=== PATIENT | male | born 1955 | race Caucasian/White ===

== ENCOUNTER 2023-03-07 09:49 | Outpatient (CLI) | payer MEDICARE, SELFPAY ==
--- NOTE | ~2023-03-07 | XR_ITS ---
Right Shoulder Technique: AP and axillary views were obtained. Clinical History: Pain Findings: No fracture or dislocation is seen. Osseous alignment is anatomic. Minimal degenerative april nge of the glenohumeral joint noted. Soft tissues are unremarkable. Impression: Minimal glenohumeral joint degenerative change. Reviewed, dictated and finalized at [facility]. Impression: Minimal glenohumeral joint degenerative change.
--- NOTE | ~2023-03-07 | XR_ITS ---
Left wrist Technique: PA, oblique, lateral, and ulnar deviation views were obtained. Clinical History: Pain Findings: No acute fracture or dislocation is seen. Chronic fracture fragment or persistent secondary ossification center noted at the ulnar styloid process. There is marked narrowing/degenerative delarosa e of the radial scaphoid articulation. Suggestion of dorsal tilt of the lunate on lateral view delmer g the possibility of DISI. Soft tissues are unremarkable. Impression: Degenerative change of the radial scaphoid articulation. Chronic fracture fragment or persistent secondary ossification center at the ulnar styloid process. Possible DISI, though no distinct widening of the scapholunate articulation is seen. Reviewed, dictated and finalized at location M. Impression: Degenerative change of the radial scaphoid articulation. Chronic fracture fragment or persistent secondary ossification center at the ul claire styloid process. Possible DISI, though no distinct widening of the scapholunate articulation is seen.
== END 2023-03-07 09:50 ==
PROVIDERS: PCP Family Medicine; Visit Provider Nurse Practitioner Family
DX: S49.91XA Unspecified injury of right shoulder and upper arm, initial encounter (principal); M25.532 Pain in left wrist; X58.XXXA Exposure to other specified factors, initial encounter
CPT/HCPCS: 73030; 73110

== ENCOUNTER 2023-06-13 12:56 | Emergency (ER) | payer MEDICARE, SELFPAY ==
--- NOTE | ~2023-06-13 | XR_ITS ---
XR chest 2V DATE: 06/13/2023 14:10 INDICATION: Dizziness, hypertension, tachycardia. Heart surgery 2 weeks ago TECHNIQUE: PA and lateral views COMPARISON: 11/01/2019 CT pulmonary scan 11/10/2019 PA and lateral chest. FINDINGS: Status post mitral valve replacement. Heart size is within normal limits. There is thoracic aortic tortuosity. There is an ill-defined approximately 3 x 4 cm opacity overlying the lower right perihilar area later ally, which may represent some focal infiltrate or atelectasis or pulmonary contusion. Short-term fol low-up radiographs are recommended given that the patient has had recent surgery. There is suggestion of minimal infiltrate or atelectasis in the lateral right mid to upper lung as we ll. The lungs otherwise appear hyperinflated but clear of infiltrate or consolidation. There is osteopenia. There is degenerative spurring of the thoracic spine. IMPRESSION: Approximately 3 x 4 cm ill-defined opacity overlying lateral right lower perihilar area, possibly postoperative contusion or focal pulmonary infiltrate or atelectasis. Recommend short-term f ollow up chest radiographic examination in approximately 2 weeks Status post mitral valve replacement. Reviewed, dictated and finalized at location A. IMPRESSION: Approximately 3 x 4 cm ill-defined opacity overlying lateral right lower perihilar area, possibly postoperative contusion or focal pulmonary infil trate or atelectasis. Recommend short-term follow up chest radiographic examina tion in approximately 2 weeks Status post mitral valve replacement.
--- NOTE | 2023-06-13 13:07 | ECG_ITS ---
Measurements Intervals [place] Rate: 100 P: 6 CT: 156 QRS: 4 QRSD: 85 T: 72 QT: 337 QTc: 436 Interpretive Statements SINUS TACHYCARDIA POSSIBLE LEFT ATRIAL ENLARGEMENT [-0.1mV P WAVE IN V1/V2] POOR R-WAVE PROGRESSION SINUS TACHYCARDIA NOW PRESENT POOR R-WAVE PROGRESSION IS NEW, POSSIBLY DUE TO LEAD PLACEMENT Electronically Signed On 06-13-2023 14:12:39 CDT by Irma Powell M.D.
[2023-06-13 13:13] VITALS: BP 147/99; PULSE 100; RESP 16; TEMP 36.7; O2SAT 100
[2023-06-13 14:55] VITALS: BP 162/122; PULSE 90; RESP 16; TEMP 36.8; O2SAT 96
--- NOTE | 2023-06-13 15:09 | PC.NURSE ---
Manual B/P correlates with monitor.
[2023-06-13 15:24] LABS: Basophils Absolute Auto 0.1 K/mm3 (0.0-0.1); Basophils Percent Auto 0.7 % (0.2-1.2); Eosinophils Absolute Auto 0.1 K/mm3 (0-0.3); Eosinophils Percent Auto 0.5 % (0-4.4); Hematocrit 42.9 % (42.0-52.0); Hemoglobin 13.9 g/dL (14.0-18.0); Immature Granulocyte Absolute 0.08 K/mm3 (0.00-0.031); Immature Granulocyte Percent A 0.7 % (0-0.5); Lymphocytes Absolute Auto 1.04 K/mm3 (0.9-3.2); Lymphocytes Percent Auto 9.3 % (18.3-44.2); Mean Corpuscular HGB Conc 32.4 g/dl (32-36); Mean Corpuscular Hemoglobin 32.1 pg (26-34); Mean Corpuscular Volume 99.1 fl (80-100); Mean Platelet Volume 8.9 fl (7.4-10.4); Monocytes Absolute Auto 0.8 K/mm3 (0.1-0.6); Monocytes Percent Auto 7.3 % (2.6-8.5); Neutrophils Absolute Auto 9.1 K/mm3 (1.3-6.7); Neutrophils Percent Auto 81.5 % (45.5-73.1); Platelet Count Result 464 k/mm3 (150-375); Red Blood Count 4.33 M/mm3 (4.6-6.20); Red Cell Distribution Width 12.3 % (11.5-14.5); White Blood Count 11.2 K/mm3 (4.5-10.0)
[2023-06-13 15:26] VITALS: BP 148/108; PULSE 88; RESP 16; O2SAT 98
[2023-06-13 15:37] LABS: Alanine Aminotransferase 29 U/L (6-50); Albumin Level 4.2 g/dL (3.5-5.1); Alkaline Phosphatase 91 U/L (38-126); Anion Gap 6 mmol/L (8-16); Aspartate Amino Transferase 22 U/L (17-59); Bilirubin,Total 0.4 mg/dL (0.2-1.3); Blood Urea Nitrogen 13 mg/dL (9-20); Calcium 9.6 mg/dL (8.4-10.2); Carbon Dioxide 30 mmol/L (22-30); Chloride 101 mmol/L (98-107); Estimated Glomerular Filt Rate > 60; Glucose 114 mg/dL (65-110); Potassium 4.7 mmol/L (3.4-5.0); Sodium 137 mmol/L (137-145)
[2023-06-13 15:54] VITALS: BP 140/101; PULSE 82; RESP 18; TEMP 36.8; O2SAT 99
--- NOTE | 2023-06-13 16:22 | ED.GENADULT ---
HPI - General Adult General Chief complaint: Recheck/Abnormal Lab/Rx Stated complaint: BP recheck Time Seen by Provider: 06/13/23 14:53 History of Present Illness HPI narrative: Patient is a 67-year-old male who presents ER with elevated blood pressures. Noted today that his systolic blood pressure has been in the 140s and his diastolic blood pressures been in the 100s. He has been compliant with his home antihypertensive medications. He contacted his cardiothoracic surgeon and spa director/finance before arriving here. Patient underwent mitral valve replacement 2 weeks ago. Prior to that he had had a coronary catheterization that showed no coronary disease. No history of cardiac stents. He is having no chest pain or chest pressure. He reports earlier he was talking to a friend at his home when he felt briefly lightheaded and off. Patient feels normal at this time. He has had no runny nose or sore throat or productive cough. No exertional dyspnea Related Data Home Medications Medication Instructions Recorded Confirmed aspirin 81 mg tablet,delayed 81 mg PO DAILY 06/12/23 06/12/23 release (Adult Low Dose Aspirin) metoprolol succinate 25 mg 12.5 mg PO DAILY 06/12/23 06/12/23 tablet,extended release 24 hr Allergies Allergy/AdvReac Type Severity Reaction Status Date / Time venom-wasp Allergy Severe swelling, Verified 06/13/23 14:57 hives oyster extract Allergy Hives Verified 06/13/23 14:57 Review of Systems Review of Systems: All systems reviewed & are unremarkable except as noted in HPI and below Constitutional: Constitutional: Denies chills, Denies fatigue and Denies fever(s) ENT: Reports dizziness, Denies nasal congestion and Denies sore throat Cardiovascular: Cardiovascular: Denies chest pain, Denies rapid heart rate and Denies radiating jaw, neck or arm pain Respiratory: Respiratory: Denies cough and Denies dyspnea Gastrointestinal: Gastrointestinal: Denies abdominal pain, Denies nausea and Denies vomiting Neurologic: Reports dizziness, Denies syncope, Denies headache(s), Denies focal weakness and Denies numbness PMFSH Past Medical History Medical History BMI 23.0-23.9, adult Body mass index [BMI] 22.0-22.9, adult Carpal tunnel syndrome Dermatophytosis of nail Dietary counseling and surveillance (04/09/19) Fear of flying Ganglion, unspecified Mitral valve disease Mitral valve prolapse Osteoarthrosis, unspecified whether generalized or localized, forearm Pure hypercholesterolemia Shellfish allergy Wrist fracture Surgical History Surgical History H/O cardiac catheterization H/O mitral valve repair History of surgery on arm left -1964 History of surgery on wrist left 1976 S/P left knee arthroscopy Family History Family History Father Acute myocardial infarction , age 52 Family history of coronary artery disease Mother H/O mitral valve replacement Sibling H/O tricuspid valve replacement Other Family history of hypercholesterolemia Hypertension Social History Social History Smoking status: Never smoker Second hand tobacco smoke exposure: Yes Alcohol intake: current Drinks per week: 4 Substance use: never Substance use type: does not use Lack of Transportation: No Lack of Food: Never True Current Housing: I Have Housing Concerned About Future Housing: No Difficulty Paying Gas/Electric Bills: No Difficulty Paying for Meds: No Currently Unemployed: No Education: Bachelor's Degree Difficulty w/ Childcare or Family Care: No Living arrangements: with family Occupation/Education: occupation 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
[2023-06-13 17:12] VITALS: BP 135/100; PULSE 83; RESP 18; TEMP 37; O2SAT 99
== END 2023-06-13 17:14 | disposition home or self-care (01) ==
PROVIDERS: Emergency Provider Emergency Medicine; PCP Family Medicine
DX: J18.9 Pneumonia, unspecified organism (principal); I10 Essential (primary) hypertension; I34.1 Nonrheumatic mitral (valve) prolapse; E78.00 Pure hypercholesterolemia, unspecified; M19.90 Unspecified osteoarthritis, unspecified site; Z91.013 Allergy to seafood; Z95.2 Presence of prosthetic heart valve; Z77.22 Contact with and (suspected) exposure to environmental tobacco smoke (acute) (chronic); Z79.82 Long term (current) use of aspirin
CPT/HCPCS: 36415; 71046; 80053; 85025; 93005; 99283

== ENCOUNTER 2023-08-02 10:40 | Outpatient (CLI) | payer MEDICARE, SELFPAY ==
--- NOTE | ~2023-08-02 | CT_ITS ---
CT Scan of the Chest without Contrast: Clinical Indication: Abnormal finding of lung field Technique: Contiguous sections were acquired throughout the chest without intravenous contrast. Dose reduction technique was used on this scan by utilizing automated exposure control and iterative recon struction technique. The dose-length product (DLP) was 235.43 mGy-cm. COMPARISON: 11/01/2019 Findings: There is no evidence of any significant mediastinal, hilar or axillary lymphadenopathy. Coronary skylar ry calcifications are present. Ascending aorta is dilated to 4.3 cm. There is no evidence of pleural or pericardial effusion. Stable 4 mm left lower lobe pulmonary nodule noted (axial image 77). There is chronic appearing scarr ing or atelectasis at the anteromedial right middle lobe. Images through the upper abdomen reveal no abnormalities. Impression: Ascending aorta is dilated to 4.3 cm. Chronic appearing scarring or atelectasis in the anteromedial right middle lobe. Stable subcentimeter left lower lobe pulmonary nodule. Reviewed, dictated and finalized at [facility]. Impression: Ascending aorta is dilated to 4.3 cm. Chronic appearing scarring or atelectasis in the anteromedial right middle lobe . Stable subcentimeter left lower lobe pulmonary nodule.
== END 2023-08-02 10:41 | disposition home or self-care (01) ==
PROVIDERS: PCP Family Medicine; Visit Provider Physician Assistant Medical
DX: R91.8 Other nonspecific abnormal finding of lung field (principal); I77.819 Aortic ectasia, unspecified site; R91.1 Solitary pulmonary nodule
CPT/HCPCS: 71250

== ENCOUNTER 2024-12-16 12:51 | Outpatient (CLI) | payer MEDICARE, SELFPAY ==
--- NOTE | ~2024-12-16 | CT_ITS ---
EXAMINATION:CT diagnostic chest wo con DATE: 12/16/2024 13:08 INDICATION: Other nonspecific abnormal finding of lung field. TECHNIQUE: Computed tomography (CT) of the chest was performed without intravenous contrast. Automate d exposure control and iterative reconstruction technique were employed. The dose-length product (DLP ) was 218.28 mGy-cm. COMPARISON: Chest CT 08/02/2023, 11/01/19 FINDINGS: There is mild scarring in right upper lobe and at left lung apex. There is mild scarring in paraspinal right lower lobe. There is mild bronchiectasis in anterior segment right upper lobe. Ther e is mild atelectasis bilaterally. There is a 5 mm nodule in left lower lobe, stable from 11/01/19. No pleural effusion. The heart size is normal. There are coronary artery calcifications. No pericardial effusion. There is ectasia of ascending aorta measuring 4.6 cm. There is severe thoracic and lumbar spondylosis. IMPRESSION: 1. Mild scarring in the lungs. Reviewed, dictated and finalized at location A. OLOGY PROFESSOR
--- OUTSIDE RECORDS SUMMARY | 2024-12-16 14:33 | XMS_ITS | Referral Summary ---
Author Organization [facility] [place] [address] Address [address] [place] [address] Care Team Providers Care Gas Collection System Operator Name Role Phone Larry Garcia MD Primary Care Provider + [phone] Allergies Active Allergy Reactions Criticality Noted Date Comments Oyster Extract Hypotension High 06/18/2019 Nausea/vomiting Venom-Wasp Anaphylaxis,Swelling High 03/16/2023 Medications EPINEPHrine 0.3 mg/0.3 mL auto-injection syringe as needed 06/12/2023 Active losartan (COZAAR) 50 mg tablet TAKE 1 TABLET BY MOUTH EVERY DAY 90 tablet 3 07/30/2024 Active aspirin 81 mg chewable tablet Take 1 tablet (81 mg total) by mouth daily 08/12/2024 Active Active Problems Problem Noted Date Diagnosed Date HTN (hypertension) 05/27/2023 Assessment & Plan (05/28/2023 12:45 PM CDT): Monitor POC and adjust medications as needed Started BB and titrate as tolerated Assessment & Plan (05/27/2023 2:53 PM CDT): Monitor POC and adjust medications as needed Started BB and titrate as tolerated GERD (gastroesophageal reflux disease) Assessment & Plan (05/28/2023 12:45 PM CDT): Add PPI therapy daily Assessment & Plan (05/27/2023 2:54 PM CDT): Add PPI therapy daily Cardiogenic shock 05/25/2023 Mitral valve regurgitation 06/03/2019 Assessment & Plan (05/28/2023 12:45 PM CDT): S/P BioMVR Aggressive pulmonary toilet PT/OT Continue aspirin, start BB and titrate as tolerated Add lasix DC CTs and wires today Assessment & Plan (05/27/2023 2:52 PM CDT): S/P BioMVR Aggressive pulmonary toilet PT/OT Continue aspirin, start BB and titrate as tolerated Add lasix Keep CTs Keep wires History of mitral valve repair Social History Tobacco Use Types Packs/Day Years Used Date Smoking Tobacco: Never Smokeless Tobacco: Never Tobacco Cessation:Counseling Given: Not Answered Alcohol Use Standard Drinks/Week Comments Yes 0 (1 standard drink = 0.6 oz pur e alcohol) rare/social OASIS D0700: Social Isolation Answer Da te Recorded Frequency of experiencing loneliness or isolatio n Never 06/27/2023 OASIS A1250: Transportation Answer Date Recorded Lack of Transportation (Medical) No 06/27/2023 Lack of Transportation (Non-Medical) No 06/27/2023 Patient Unable or Declines to Respond No 06/27/2023 OASIS B1300: Health Literacy Answer Cash e Recorded Frequency of needing help to read materials from doctor or pharmacy Never 06/27/2023 AUDIT-C Answer Date Recorded Q1: How often do you have a drink containing alcohol? 4 or more times a week 05/09/2023 Q2: How many drinks containi ng alcohol do you have on a typical day when you are drinking? 1 or 2 3 Q3: How often do you have si x or more drinks on one occasion? Never 05/09/2023 Personal Safety Answer Date Recorded Have you ever been in or are you currently in a harmful physical or emotional relationship or is someone making you feel afraid or unsafe? Denies 05/25/2023 Sex and Gender Information Value Date Recorded Sex Assigned at Not on file Legal Sex Male 9:39 AM CDT Gender Identity Not on file Sexual Orientation Not on file Last Filed Vital Signs Vital Sign Reading Time Taken Comments Blood Pressure 120/80 08/12/2024 12:45 PM CDT Pulse 73 08/12/2024 12:45 PM CDT Temperature 36.7 C (98 F) 06/27/2023 9:50 AM CDT Respiratory Rate 18 06/27/2023 9:50 AM CDT Oxygen Saturation 99% 08/12/2024 12:45 PM CDT Inhaled Oxygen Concentration - - Weight 80 kg (176 lb 6.4 oz) 08/12/2024 12:45 PM CDT Height 180.3 cm (5' 11 ) 08/12/2024 12:45 PM CDT Body Mass Index 24.6 08/12/2024 12:45 PM CDT Plan of Treatment Not on file Medical Devices Implanted Type Area Roughener Device Identifier Shelf Expiration Date Model / Serial / Lot [employer] Valve Mitral Tissue Stented Epic Plus 31mm [id number] - [id number] - [id number] Implanted:Qt y: 1 on 05/25/2023 by Michelle Summers MD at [facility] Prosthetic Valve N/A: Heart [employer] [id number] 09/24/2026 [id number] / [id number] / Description:MITRAL VALVE Insurance [facility] CHOICE PLUS MEDICARE SOLUTIONS MEDICARE SOLUTIONS MEDICARE SOLUTIONS Advance Directives For more information, please contact: [phone] * Full Code (Latest Code Status on File) Date Activated Date Inactivated Comments 05/25/2023 1:44 PM 05/29/2023 5:15 PM Care Teams Gas Collection System Operator Relationship Specialty Start Date End Date Larry aGrcia MD PCP - General Family Medicine 04/16/19
--- OUTSIDE RECORDS SUMMARY | 2024-12-16 14:33 | XMS_ITS | Clinical Summary ---
Author Organization [facility] [place] [address] Address [address] [place] [address] Care Team Providers Care Dryland Farmer Name Role Phone Larry Garcia MD Primary Care Provider + [phone] Allergies Active Allergy Reactions Criticality Noted Date [...] Keep wires History of mitral valve repair Surgical History Surgery Date Site/Laterality Comments MITRAL VALVE REPAIR WRIST SURGERY KNEE SURGERY Medical History Medical History Date Comments History of knee surgery H/O wrist surgery History of mitral valve repair Family History Medical History Relation Name Comments Heart attack Father Sudden Cardiac Father Anesthesia problems Neg Hx Relation Name Status Comments Father Social History Tobacco Use Types Packs/Day Years [...] when you are drinking? 1 or 2 Q3: How often do you have si [...] on file Sexual Orientation Not on file Obstetrics History Last Filed Vital Signs Vital Sign Reading [...] 08/12/2024 12:45 PM CDT Plan of Treatment Health Maintenance Due Date Last Done Comments Colon Cancer Screening-Colonoscopy 1957 Depression Screening 1957 Hepatitis C Screening 1957 Prostate Cancer Screening-PSA 1957 DTaP/Tdap/Td Vaccine (1 - Tdap) 1968 Hepatitis B Screening 1975 Zoster Vaccine (1 of 2) 2007 Pneumococcal vaccine 65+ (1 of 1 - PCV) 2022 Well Visit 65+ 2022 Fall Risk Assessment 05/29/2024 05/29/2023 Influenza Vaccine (#1) 2024 06/23/2022, 2018 Medical Devices Implanted Type Area Medical Technologist Generalist Device Identifier Shelf Expiration Date Model / Serial / Lot [employer] Valve Mitral Tissue Stented Epic Plus 31mm [id number] - [id number] - [id number] Implanted:Qt y: 1 on 05/25/2023 by Michelle Summers MD at [facility] Prosthetic Valve N/A: Heart [employer] [id number] 09/24/2026 [id number] / [id number] / Description:MITRAL VALVE Insurance [facility] HMO/PPO Address: [address] [address] [place] [address] [facility] CHOICE PLUS [facility] HMO/PPO Address: [address] [address] [place] [address] MEDICARE SOLUTIONS [facility] MEDICARE Address: [address] [address] [facility] MEDICARE Address: [id number] [place] [address] Advance Directives For more information, please contact: [phone] * Full Code (Latest Code Status on File) Date Activated Date Inactivated Comments 05/25/2023 1:44 PM 05/29/2023 5:15 PM Care Teams Dryland Farmer Relationship Specialty Start Date End Date Larry Garcia MD PCP - General Family Medicine 04/16/19
--- OUTSIDE RECORDS SUMMARY | 2024-12-16 14:33 | XMS_ITS | Encounter Summary ---
Author Organization [facility] Address [address] [place] [address] Phone Care Team Providers Care Oil Mixer Name Role Phone Larry Garcia MD Primary Care Provider [phone] Encounter Details Date Type Department Care Team (Latest Contact Info) Description 08/02/2023 Orders Only [facility] Scanning, Provider Social History Tobacco Use Types Packs/Day Years Used Date Smoking Tobacco: Never Smokeless Tobacco: Never Alcohol Use Standard Drinks/Week Comments Yes 0 [...] on file Sexual Orientation Not on file documented as of this encounter Plan of Treatment Not on file documented as of this encounter Procedures Procedure Name Priority Date/Time Associated Diagnosis Comments SCAN - RADIOLOGY/IMAGING 08/02/2023 documented in this encounter Results * SCAN - RADIOLOGY/IMAGING (08/02/2023) Anatomical Region Laterality Modality Other us Provider Scanning Final Result documented in this encounter Visit Diagnoses Not on filedocumented in this encounter Care Teams Oil Mixer Relationship Specialty Start Date End Date Larry Garcia MD PCP - General Family Medicine 04/16/19 documented as of this encounter
--- OUTSIDE RECORDS SUMMARY | 2024-12-16 14:33 | XMS_ITS | Encounter Summary ---
Author Organization [facility] Address [address] [place] [address] Care Team Providers Care Internal Medicine Specialist Name Role Phone Larry Garcia MD Primary Care Provider [phone] Encounter Details Date Type Department Care Team (Late st Contact Info) Description 02/19/2023 Telephone [facility] [address] [place] [address] Sujey Cesar, RN Social History Tobacco Use Types Packs/Day Years Used Date Smoking Tobacco: Never Smokeless Tobacco: Never Alcohol Use Standard Drinks/Week Comments Yes 0 (1 standard drink = 0.6 oz pur e alcohol) rare/social Sex and Gender Information Value Date Recorded Sex Assigned at Not on file Legal Sex Male 9:39 AM CDT Gender Identity Not on file Sexual Orientation Not on file documented as of this encounter Plan of Treatment Not on file documented as of this encounter Visit Diagnoses Not on filedocumented in this encounter Care Teams Internal Medicine Specialist Relationship Specialty Start Date End Date Larry Garcia MD PCP - General Family Medicine 04/16/19 documented as of this encounter
== END 2024-12-16 12:52 | disposition home or self-care (01) ==
PROVIDERS: PCP Family Medicine; Visit Provider Nurse Practitioner Family
DX: R91.8 Other nonspecific abnormal finding of lung field (principal)
CPT/HCPCS: 71250

== ENCOUNTER 2025-09-23 12:46 | Outpatient (CLI) | payer MEDICARE, SELFPAY ==
--- NOTE | ~2025-09-23 | XR_ITS ---
EXAMINATION: XR shoulder RT min 2V, 09/23/2025 13:14 JANITORIAL CLEANER HISTORY: CHRONIC RT LATERAL SHOULDER PAIN COMPARISON: No comparisons available. Findings: No acute fracture or malalignment. Moderate degenerative changes Soft tissues unremarkable. Impression: No acute fracture or malalignment. Reviewed, dictated and finalized at location P. TORIAL CLEANER Impression: No acute fracture or malalignment.
== END 2025-09-23 12:47 | disposition home or self-care (01) ==
LOC: MICIMG 12:47
PROVIDERS: PCP Family Medicine; Visit Provider Physician Assistant Medical
DX: M25.511 Pain in right shoulder (principal); G89.29 Other chronic pain
CPT/HCPCS: 73030